=== PATIENT | male | born 1990 | race African-American/Black ===

== ENCOUNTER 2025-07-14 01:12 | Emergency (ER) | payer SELFPAY ==
[2025-07-14 01:34] LABS: #Basophils 0.07 10x3/uL (0.0-0.2); #Eosinophils 0.10 10x3/uL (0.0-0.5); #Monocytes 0.76 10x3/uL (0.0-1.1); #Neutrophils 4.52 10x3/uL (1.5-8.4); %Basophils 0.8 % (0.0-2.0); %Eosinophils 1.2 % (0.0-6.0); %Lymphocytes 33.8 % (18.0-47.0); %Monocytes 9.2 % (0.0-10.0); %Neutrophils 54.8 % (40.0-75.0); Hematocrit 41.0 % (38.8-50.0); Hemoglobin 14.5 g/dL (13.5-17.5); Mean Corpuscular Hemoglobin 31.5 pg (27.0-33.0); Mean Corpuscular Volume 89.1 fL (81.2-95.1); Platelet Count 313 10x3/uL (150-450); Red Blood Cell (RBC) Count 4.60 10x6/uL (4.32-5.72); White Blood Cell (WBC) Count 8.26 10x3/uL (3.5-10.5)
[2025-07-14] MEDS ORDERED: Ondansetron PF 4 MG/2 ML Vial ONE (01:44)
[2025-07-14 01:45] LABS: ALT (SGPT) 18 U/L (Less than 45); AST (SGOT) 37 U/L (11-34); Albumin 4.3 g/dL (3.1-4.5); Alkaline Phosphatase 63 U/L (40-110); Anion Gap 18 mmol/L (10-20); BUN (Urea Nitrogen) 4 mg/dL (8.9-20.6); Bilirubin, Total 0.5 mg/dL (0.3-1.2); Calc. Creatinine Clearance 0 mL/min (70-130); Calcium 9.1 mg/dL (7.8-10.44); Carbon Dioxide 19 mmol/L (22-29); Chloride 105 mmol/L (98-107); Globulin 3.0 g/dL (2.4-3.5); Glucose 111 mg/dL (70-105); Potassium 3.4 mmol/L (3.5-5.1); Sodium 139 mmol/L (136-145)
== END 2025-07-14 03:05 | disposition home or self-care (01) ==
LOC: EEVIPCON 01:12 → CSHERS 01:12
DX: S31.010A Laceration without foreign body of lower back and pelvis without penetration into retroperitoneum, initial encounter (principal); Z23 Encounter for immunization; Z87.891 Personal history of nicotine dependence; W26.0XXA Contact with knife, initial encounter
CPT/HCPCS: 12001; 74177; 80053; 85025; 96374; 96375; J2270; J2405